=== PATIENT | female | born 1960 | race Caucasian/White ===

== ENCOUNTER 2017-06-09 14:06 | Emergency (ER) | payer OTHER ==
[~2017-06-09] VITALS: Ht 170.2 cm; Wt 55.0 kg
[~2017-06-09 14:06] MED LIST: AMLO5 PO; ECOT81TA2 PO; LISI20 PO; METO50TA PO; PARO20 PO; THIA100T PO
[2017-06-09 14:11] VITALS: BP 134/96; PULSE 85; RESP 15; TEMP 98.1; O2SAT 99
--- NOTE | 2017-06-09 14:16 | PD ---
Physical Exam Time Seen by Provider: 14:12 Narrative 56yo F saying she needs help. +suicidal ideation "sometimes." Denies suicidal thoughts at this time. Heroin and alcohol abuse and wants detox. Last injected heroin couple days ago. Having generalized weakness. Patient seen in triage. VS reviewed. Awaiting bed placement. Data Data Last Documented VS Vital Signs Date Time Temp Pulse Resp B/P (MAP) Pulse Ox O2 Delivery O2 Flow Rate FiO2 06/09/17 14:11 98.1 85 15 134/96 (109) 99 MDM Supervised Visit with LIBRADO: Deidra Choi Jun 09, 2017 14:16
[2017-06-09] MEDS ORDERED: SODIUM CHLOR 0.9% 1000 ML INJ 1,000 ML IV SCH (15:28)
[2017-06-09] MEDS ORDERED: SODIUM CHLORIDE 0.9% FLUSH 5 ML FLUSH IV FLUSH PRN (15:30)
[2017-06-09 15:36] VITALS: BP 153/99; PULSE 79; RESP 18; O2SAT 99
[2017-06-09 15:37] VITALS: RESP 18; O2SAT 99
--- NOTE | 2017-06-09 15:56 | RADRPT ---
EXAM DATE/TIME: 06/09/2017 15:31 [facility] COMPARISON: CHEST SINGLE AP, October 17, 2014, 20:02. INDICATIONS : Syncope. MEDICAL HISTORY : None. SURGICAL HISTORY : None. ENCOUNTER: Initial ACUITY: 1 day PAIN SCORE: 0/10 LOCATION: Bilateral chest FINDINGS: A single view of the chest demonstrates the lungs to be symmetrically aerated without evidence of mas s, infiltrate or effusion. The cardiomediastinal contours are unremarkable. Osseous structures are intact. CONCLUSION: 1. No acute cardiopulmonary disease. Alex Combs MD on June 09, 2017 at 15:54 Board Certified Radiologist. This report was verified electronically.
[2017-06-09 16:11] LABS: AUTOMATED NEUTROPHIL # 2.1 TH/MM3 (1.8-7.7); BASOPHIL % 0.7 % (0.0-2.0); EOSINOPHIL # 0.1 TH/MM3 (0-0.4); EOSINOPHIL % 1.1 % (0.0-4.0); HEMATOCRIT 47.7 % (35.0-46.0); HEMO FLAGS DIFF FINAL; LYMPH % 44.3 % (9.0-44.0); LYMPHOCYTE # 2.1 TH/MM3 (1.0-4.8); MEAN CELL VOLUME 89.6 FL (80.0-100.0); MEAN CORPUSCULAR HEMOGLOBIN 29.9 PG (27.0-34.0); MEAN CORPUSCULAR HGB CONC 33.4 % (32.0-36.0); MONO % 10.7 % (0.0-8.0); NEUT % 43.2 % (16.0-70.0); PLATELET COUNT 404 TH/MM3 (150-450); RED BLOOD COUNT 5.32 MIL/MM3 (4.00-5.30); RED CELL DISTRIBUTION WIDTH 14.4 % (11.6-17.2); WHITE BLOOD COUNT 4.8 TH/MM3 (4.0-11.0)
--- NOTE | 2017-06-09 16:22 | RADRPT ---
EXAM DATE/TIME: 06/09/2017 15:53 [facility] COMPARISON: CT BRAIN W/O CONTRAST, October 17, 2014, 21:24. INDICATIONS : Altered mental status. RADIATION DOSE: 32.08 CTDIvol (mGy) MEDICAL HISTORY : Hypertension. Throat cancer. SURGICAL HISTORY : None. ENCOUNTER: Initial ACUITY: 1 day PAIN SCALE: 2/10 LOCATION: Bilateral cranial TECHNIQUE: Multiple contiguous axial images were obtained of the head. Using automated exposure control and adj ustment of the mA and/or kV according to patient size, radiation dose was kept as low as reasonably a chievable to obtain optimal diagnostic quality images. DICOM format image data is available electro nically for review and comparison. FINDINGS: CEREBRUM: The ventricles are normal for age. No evidence of midline shift, mass lesion, hemorrhage or acute in farction. No extra-axial fluid collections are seen. POSTERIOR FOSSA: The cerebellum and brainstem are intact. The 4th ventricle is midline. The cerebellopontine angle i s unremarkable. EXTRACRANIAL: The visualized portion of the orbits is intact. SKULL: The calvaria is intact. No evidence of skull fracture. CONCLUSION: 1. No acute intracranial abnormality. Kaleb Lovett MD on June 09, 2017 at 16:18 Board Certified Radiologist. This report was verified electronically.
[2017-06-09 16:51] LABS: ALKALINE PHOSPHATASE 148 U/L (45-117); ALT (GPT) 60 U/L (10-53); ANION GAP 14 MEQ/L (5-15); AST (GOT) 53 U/L (15-37); BICARBONATE 22.8 MEQ/L (21.0-32.0); BLOOD UREA NITROGEN 4 MG/DL (7-18); CHLORIDE 88 MEQ/L (98-107); GLOMERULAR FILTRATION RATE 156 ML/MIN (>89); SODIUM (NA) 125 MEQ/L (136-145); TOTAL BILIRUBIN ADULT 0.9 MG/DL (0.2-1.0)
[2017-06-09 16:55] LABS: ACETAMINOPHEN LESS THAN 2.0 MCG/ML (10.0-30.0); ALCOHOL 367 MG/DL (0-5)
[2017-06-09 16:57] LABS: POTASSIUM 2.8 MEQ/L (3.5-5.1)
--- NOTE | 2017-06-09 17:03 | PD ---
HPI Chief Complaint: Psychiatric Symptoms Time Seen by Provider: 15:21 Travel History International Travel<30 days: No Contact w/Intl Traveler<30days: No Traveled to known affect area: No History of Present Illness HPI Patient arrives by private vehicle. She has been abusing drugs intravenously and drinking alcohol. She has been abusing opioids. The patient denies suicidal intention. The patient's significant other reports normally she is lucid and energetic however lately she has been relatively somnolent. Evidently she cannot walk lately due to weakness. In the ER she has no specific complaints other than the fatigue also noted by her significant other. PFSH Past Medical History Anxiety: Yes Depression: Yes Heart Rhythm Problems: No Cancer: Yes (throat in remission for 6 years) Cardiovascular Problems: Yes High Cholesterol: No Chemotherapy: Yes Chest Pain: No Congestive Heart Failure: No Diminished Hearing: No Endocrine: No Gastrointestinal Disorders: No Genitourinary: No Hypertension: Yes Insomnia: Yes Musculoskeletal: No Neurologic: No Psychiatric: Yes (PTSD) Reproductive: No Respiratory: No Radiation Therapy: Yes ?: Not Menopausal: Yes Past Surgical History Abdominal Surgery: No Cardiac Surgery: No Section: Yes Ear Surgery: No Endocrine Surgery: No Eye Surgery: No Genitourinary Surgery: No Gynecologic Surgery: No Neurologic Surgery: No Oral Surgery: No Thoracic Surgery: No Other Surgery: Yes (right lymph node removed from neck) Social History Alcohol Use: Yes (drinks 4-5 beers daily) Tobacco Use: Yes (1/2 ppd) Substance Use: Yes (OPIODS, heroin) Allergies-Medications (Allergen,Severity, Reaction): Coded Allergies: No Known Allergies (Unverified , 06/09/17) Reported Meds & Prescriptions Reported Meds & Active Scripts Active Metoprolol Tartrate 50 mg (Metoprolol Tartrate) 50 Mg Tab 50 Mg PO BID Paxil 20 Mg Tab (Paroxetine Hcl) 20 Mg Tab 20 Mg PO DAILY Prinivil 20 mg (Lisinopril) 20 Mg Tab 20 Mg PO DAILY Norvasc (Amlodipine Besylate) 5 Mg Tab 5 Mg PO DAILY Vitamin B1 (Thiamine HCl) 100 Mg Tab 100 Mg PO DAILY Ecotrin (Aspirin) 81 Mg Tabec 81 Mg PO DAILY Review of Systems Except as stated in HPI: all other systems reviewed are Neg General / Constitutional: No: Fever Psychiatric: Positive: Substance Abuse, No: Suicidal Ideations Physical Exam Narrative GENERAL: 56-year-old female somewhat thin answers questions alert and oriented 3 GCS 15 SKIN: Warm and dry. HEAD: Atraumatic. Normocephalic. EYES: Pupils equal and round. No scleral icterus. No injection or drainage. ENT: No nasal bleeding or discharge. Mucous membranes pink and moist. Poor dentition. NECK: Trachea midline. No JVD. CARDIOVASCULAR: Regular rate and rhythm. RESPIRATORY: No accessory muscle use. Clear to auscultation. Breath sounds equal bilaterally. GASTROINTESTINAL: Abdomen soft, non-tender, nondistended. Hepatic and splenic margins not palpable. MUSCULOSKELETAL: Extremities without clubbing, cyanosis, or edema. No obvious deformities. NEUROLOGICAL: Awake and alert. GCS 15. Cranial nerves III through XII normal. PSYCHIATRIC: Polysubstance abuse. No suicidal ideation. Data Data Last Documented VS Vital Signs Date Time Temp Pulse Resp B/P (MAP) Pulse Ox O2 Delivery O2 Flow Rate FiO2 06/09/17 15:37 18 99 Room Air 06/09/17 15:36 79 06/09/17 14:11 98.1 Vital signs reviewed blood pressure 134/96 Orders Orders Electrocardiogram (06/09/17 15:28) Ammonia (06/09/17 15:28) Complete Blood Count With Diff (06/09/17 15:28) Comprehensive Metabolic Panel (06/09/17 15:28) Chest, Single Ap (06/09/17 15:28) Ct Brain W/O Iv Contrast(Rout) (06/09/17 15:28) Blood Glucose (06/09/17 15:28) Ecg Monitoring (06/09/17 15:28) Iv Access Insert/Monitor (06/09/17 15:28) Oximetry (06/09/17 15:28) Sodium Chloride 0.9% Flush (Ns Flush) (06/09/17 15:30) Sodium Chlor 0.9% 1000 Ml Inj (Ns 1000 M (06/09/17 15:28) Drug Screen, Random Urine (06/09/17 15:28) Alcohol (Ethanol) (06/09/17 15:28) Tylenol (Acetaminophen) (06/09/17 15:28) Salicylates (Aspirin) (06/09/17 15:28) Potassium Chloride (Kcl) (06/09/17 17:15) Labs Laboratory Tests Test 06/09/17 15:34 06/09/17 16:15 06/09/17 17:10 White Blood Count 4.8 TH/MM3 Red Blood Count 5.32 MIL/MM3 Hemoglobin 15.9 GM/DL Hematocrit 47.7 % Mean Corpuscular Volume 89.6 FL Mean Corpuscular Hemoglobin 29.9 PG Mean Corpuscular Hemoglobin Concent 33.4 % Red Cell Distribution Width 14.4 % Platelet Count 404 TH/MM3 Mean Platelet Volume 6.8 FL Neutrophils (%) (Auto) 43.2 % Lymphocytes (%) (Auto) 44.3 % Monocytes (%) (Auto) 10.7 % Eosinophils (%) (Auto) 1.1 % Basophils (%) (Auto) 0.7 % Neutrophils # (Auto) 2.1 TH/MM3 Lymphocytes # (Auto) 2.1 TH/MM3 Monocytes # (Auto) 0.5 TH/MM3 Eosinophils # (Auto) 0.1 TH/MM3 Basophils # (Auto) 0.0 TH/MM3 CBC Comment DIFF FINAL Differential Comment Blood Urea Nitrogen 4 MG/DL Creatinine 0.42 MG/DL Random Glucose 86 MG/DL Total Protein 7.7 GM/DL Albumin 3.4 GM/DL Calcium Level 8.2 MG/DL Alkaline Phosphatase 148 U/L Aspartate Amino Transf (AST/SGOT) 53 U/L Alanine Aminotransferase (ALT/SGPT) 60 U/L Total Bilirubin 0.9 MG/DL Sodium Level 125 MEQ/L Potassium Level 2.8 MEQ/L Chloride Level 88 MEQ/L Carbon Dioxide Level 22.8 MEQ/L Anion Gap 14 MEQ/L Estimat Glomerular Filtration Rate 156 ML/MIN Salicylates Level LESS THAN 1.7 MG/DL Acetaminophen Level LESS THAN 2.0 MCG/ML Ethyl Alcohol Level 367 MG/DL Urine Opiates Screen NEG Urine Barbiturates Screen NEG Urine Amphetamines Screen NEG Urine Benzodiazepines Screen NEG Urine Cocaine Screen NEG Urine Cannabinoids Screen NEG MDM Medical Decision Making Medical Screen Exam Complete: Yes Emergency Medical Condition: Yes Medical Record Reviewed: Yes Differential Diagnosis Altered mental status/psychosis due to infection/environmental exposure/ metabolic abnormality, polypharmacy, alcohol abuse/intoxication, illicit or prescribed drug abuse, malingering/secondary gain, non-organic psychiatric disease Narrative Course CBC & BMP Diagram 06/09/17 15:34 Total Protein 7.7, Albumin 3.4, Calcium Level 8.2 L, Alkaline Phosphatase 148 H , Aspartate Amino Transf (AST/SGOT) 53 H, Alanine Aminotransferase (ALT/SGPT) 60 H, Total Bilirubin 0.9 Ammonia 18 Toxicology negative Alcohol of 367 Liter normal saline started. 60 mEq potassium started. Oncoming provider to reassess. Patient may need admission if she cannot walk otherwise admission may be required. Electrolyte abnormalities likely secondary to alcoholism. Diagnosis Primary Impression: Alcohol intoxication Qualified Codes: F10.929 - Alcohol use, unspecified with intoxication, unspecified Additional Impressions: Hyponatremia Hypokalemia Additional Instructions: You have a choice when it comes to health care, and we are glad that you chose [facility]. Hopefully, we have met your expectations on today's visit. You are welcome to return to [facility] at any time, as we are committed to meeting the health care needs of our community. Med/Other Pt SpecificInfo: No Change to Meds Disposition: 01 DISCHARGE HOME Condition: Stable Kaleb Rodriguez MD Jun 09, 2017 17:03
[2017-06-09] MEDS ORDERED: POTASSIUM CHLORIDE 20 MEQ CONTROLLED RELEASE TAB PO ONE (17:15)
[2017-06-09 18:54] VITALS: BP 117/71; PULSE 84; RESP 18; O2SAT 97
[2017-06-09 19:20] VITALS: BP 125/79; PULSE 77; RESP 18; O2SAT 97
--- NOTE | 2017-06-09 20:27 | PD ---
Physical Exam Narrative GENERAL: SKIN: Warm and dry. HEAD: Atraumatic. Normocephalic. EYES: Pupils equal and round. No scleral icterus. No injection or drainage. ENT: No nasal bleeding or discharge. Mucous membranes pink and moist. NECK: Trachea midline. No JVD. CARDIOVASCULAR: Regular rate and rhythm. RESPIRATORY: No accessory muscle use. Clear to auscultation. Breath sounds equal bilaterally. GASTROINTESTINAL: Abdomen soft, non-tender, nondistended. MUSCULOSKELETAL: Extremities without clubbing, cyanosis, or edema. No obvious deformities. NEUROLOGICAL: Awake and alert. No obvious cranial nerve deficits. Motor grossly within normal limits. Five out of 5 muscle strength in the arms and legs. Normal speech. PSYCHIATRIC: Appropriate mood and affect; insight and judgment normal. Data Data Last Documented VS Vital Signs Date Time Temp Pulse Resp B/P (MAP) Pulse Ox O2 Delivery O2 Flow Rate FiO2 06/09/17 19:20 77 18 125/79 (94) 97 Room Air 06/09/17 14:11 98.1 Orders Orders Electrocardiogram (06/09/17 15:28) Ammonia (06/09/17 15:28) Complete Blood Count With Diff (06/09/17 15:28) Comprehensive Metabolic Panel (06/09/17 15:28) Chest, Single Ap (06/09/17 15:28) Ct Brain W/O Iv Contrast(Rout) (06/09/17 15:28) Blood Glucose (06/09/17 15:28) Ecg Monitoring (06/09/17 15:28) Iv Access Insert/Monitor (06/09/17 15:28) Oximetry (06/09/17 15:28) Sodium Chloride 0.9% Flush (Ns Flush) (06/09/17 15:30) Sodium Chlor 0.9% 1000 Ml Inj (Ns 1000 M (06/09/17 15:28) Drug Screen, Random Urine (06/09/17 15:28) Alcohol (Ethanol) (06/09/17 15:28) Tylenol (Acetaminophen) (06/09/17 15:28) Salicylates (Aspirin) (06/09/17 15:28) Potassium Chloride (Kcl) (06/09/17 17:15) Sodium Chlor 0.9% 1000 Ml Inj (Ns 1000 M (06/09/17 20:30) Labs Laboratory Tests Test 06/09/17 15:34 06/09/17 16:15 06/09/17 17:10 White Blood Count 4.8 TH/MM3 Red Blood Count 5.32 MIL/MM3 Hemoglobin 15.9 GM/DL Hematocrit 47.7 % Mean Corpuscular Volume 89.6 FL Mean Corpuscular Hemoglobin 29.9 PG Mean Corpuscular Hemoglobin Concent 33.4 % Red Cell Distribution Width 14.4 % Platelet Count 404 TH/MM3 Mean Platelet Volume 6.8 FL Neutrophils (%) (Auto) 43.2 % Lymphocytes (%) (Auto) 44.3 % Monocytes (%) (Auto) 10.7 % Eosinophils (%) (Auto) 1.1 % Basophils (%) (Auto) 0.7 % Neutrophils # (Auto) 2.1 TH/MM3 Lymphocytes # (Auto) 2.1 TH/MM3 Monocytes # (Auto) 0.5 TH/MM3 Eosinophils # (Auto) 0.1 TH/MM3 Basophils # (Auto) 0.0 TH/MM3 CBC Comment DIFF FINAL Differential Comment Blood Urea Nitrogen 4 MG/DL Creatinine 0.42 MG/DL Random Glucose 86 MG/DL Total Protein 7.7 GM/DL Albumin 3.4 GM/DL Calcium Level 8.2 MG/DL Alkaline Phosphatase 148 U/L Aspartate Amino Transf (AST/SGOT) 53 U/L Alanine Aminotransferase (ALT/SGPT) 60 U/L Total Bilirubin 0.9 MG/DL Sodium Level 125 MEQ/L Potassium Level 2.8 MEQ/L Chloride Level 88 MEQ/L Carbon Dioxide Level 22.8 MEQ/L Anion Gap 14 MEQ/L Estimat Glomerular Filtration Rate 156 ML/MIN Salicylates Level LESS THAN 1.7 MG/DL Acetaminophen Level LESS THAN 2.0 MCG/ML Ethyl Alcohol Level 367 MG/DL Urine Opiates Screen NEG Urine Barbiturates Screen NEG Urine Amphetamines Screen NEG Urine Benzodiazepines Screen NEG Urine Cocaine Screen NEG Urine Cannabinoids Screen NEG Ammonia 18 MCMOL/L [facility] Medical Record Reviewed: Yes Supervised Visit with LIBRADO: No Differential Diagnosis electrolyte abnl v anemia v etoh v Narrative Course patient ambulatory at 2030, hungry given po potassium, given sodium, Diagnosis Primary Impression: Alcohol intoxication Qualified Codes: F10.929 - Alcohol use, unspecified with intoxication, unspecified Additional Impressions: Hyponatremia Hypokalemia Patient Instructions: Alcohol Intoxication (ED), General Instructions, Hypokalemia (ED) Additional Instruction: You have a choice when it comes to health care, and we are glad that you chose [facility]. Hopefully, we have met your expectations on today's visit. You are welcome to return to [facility] at any time, as we are committed to meeting the health care needs of our community. Scripts No Active Prescriptions or Reported Meds Disposition: 01 DISCHARGE HOME Condition: Stable Kamlesh Chu MD Jun 09, 2017 20:27
[2017-06-09] MEDS ORDERED: SODIUM CHLOR 0.9% 1000 ML INJ 1,000 ML IV ONE (20:30)
--- NOTE | 2017-06-10 11:40 | EKG ---
Date Performed: 06/09/2017 Time Performed: 16:15:49 PTAGE: 56 years EKG: Sinus rhythm RIGHT ATRIAL ENLARGEMENT LEFT ATRIAL ENLARGEMENT ABNORMAL ECG Compared to prior tracing no significa nt change PREVIOUS TRACING : 10/17/2014 20.31 DOCTOR: Garland Funes Interpretating Date/Time 06/10/2017 11:39:07
== END 2017-06-09 22:37 | disposition home or self-care (01) ==
LOC: NEPD 14:06
DX: F10.929 Alcohol use, unspecified with intoxication, unspecified (principal); E87.6 Hypokalemia; E87.1 Hypo-osmolality and hyponatremia; I10 Essential (primary) hypertension; F17.290 Nicotine dependence, other tobacco product, uncomplicated; F11.10 Opioid abuse, uncomplicated
CPT/HCPCS: 70450; 71010; 80053; 80307; 82140; 85025; 93005; 96360; 96361; 99285; J7030